=== PATIENT | male | born 1965 | race Caucasian/White ===

== ENCOUNTER 2021-04-08 12:50 | Emergency (ER) | payer SELFPAY ==
[~2021-04-08] VITALS: Ht 172.7 cm; Wt 64.3 kg
[2021-04-08 13:28] VITALS: BP 124/86
[2021-04-08] MEDS ORDERED: HYDROcodone/APAP 5/325 TABLET PO ONE (14:00)
[2021-04-08 14:09] LABS: BASOPHILS % (AUTO) 0 % (0-1); EOSINOPHILS % (AUTO) 1 % (1-7); LYMPHOCYTES % (AUTO) 12 % (22-44); MEAN CORPUSCULAR HEMOGLOBIN 31.5 pg (27.5-34.5); MEAN PLATELET VOLUME 8.4 fL (7.4-10.4); MONOCYTES % (AUTO) 8 % (2-9); NEUTROPHILS % (AUTO) 78 % (42-75); PLATELET COUNT 273 x10^3/uL (130-400); RED BLOOD COUNT 4.66 x10^6/uL (4.38-5.82); RED CELL DISTRIBUTION WIDTH 12.3 % (9.4-14.8)
[2021-04-08 14:22] LABS: ALANINE AMINOTRANSFERASE 34 U/L (12-78); ANION GAP 7 mmol/L (5-15); CALCIUM 9.2 mg/dL (8.5-10.1); CHLORIDE 102 mmol/L (98-107); CREATININE 0.83 mg/dL (0.7-1.3)
[2021-04-08 14:24] LABS: ALKALINE PHOSPHATASE 103 U/L (45-117); BILIRUBIN,TOTAL 1.1 mg/dL (0.2-1.0); TOTAL PROTEIN 8.1 g/dL (6.4-8.2)
--- NOTE | 2021-04-08 15:15 | NUR ---
emergency department manager note: Pt to room from lobby.
[2021-04-08] MEDS ORDERED: HYDROcodone/APAP 5/325 TABLET ONE (15:23)
--- NOTE | 2021-04-08 15:48 | NUR ---
To [place] via [facility]
--- NOTE | 2021-04-08 16:04 | NUR ---
Back from [place].
--- NOTE | 2021-04-08 16:28 | NUR ---
Incentive Spirometer provided with instruct, pt returned demo proper use.
--- NOTE | 2021-04-08 16:36 | NUR ---
Sling applied to right shoulder. Educated on splinting ribs with pillow.
--- NOTE | 2021-04-08 17:26 | NUR ---
Went to dc patient and he had already left. Rx and dc papers were left behind. Opiate sheet unsigned 2nd to AWOL.
== END 2021-04-08 17:28 ==
LOC: ED 16:45
DX: S22.42XA Multiple fractures of ribs, left side, initial encounter for closed fracture (principal); S42.115A Nondisplaced fracture of body of scapula, left shoulder, initial encounter for closed fracture; W18.30XA Fall on same level, unspecified, initial encounter; Y93.89 Activity, other specified; Y92.89 Other specified places as the place of occurrence of the external cause; Y99.8 Other external cause status
CPT/HCPCS: 36415; 71250; 80053; 83690; 85025; 99285